=== PATIENT | male | born 1945 | race Caucasian/White ===

== ENCOUNTER 2022-01-19 08:31 | Outpatient (CLI) | payer MEDICARE ==
[2022-01-19] MEDS ORDERED: iohexol 350MG/ML 100ml bottle IV ONE (08:43)
== END 2022-01-19 23:59 | disposition home or self-care (01) ==
LOC: RAD 08:31
PROVIDERS: ATTEND Internal Medicine Cardiovascular Disease
DX: I71.2 Thoracic aortic aneurysm, without rupture (principal); I70.0 Atherosclerosis of aorta; I25.10 Atherosclerotic heart disease of native coronary artery without angina pectoris; I51.7 Cardiomegaly; N28.1 Cyst of kidney, acquired; K57.30 Diverticulosis of large intestine without perforation or abscess without bleeding; K76.89 Other specified diseases of liver; M47.815 Spondylosis without myelopathy or radiculopathy, thoracolumbar region; Z95.0 Presence of cardiac pacemaker
CPT/HCPCS: 71275; J3490; Q9967

== ENCOUNTER → 2022-06-07 | Day surgery (SDC) | payer MEDICARE ==
[~2022-06-07] VITALS: Ht 198.1 cm; Wt 81.5 kg
[~2022-06-07] MED LIST: ALLO100T PO; AMIO200T61 PO; DIGO250T2 PO; ERGO500093 PO; GLIP5TAB13 PO; MYCO250C PO; PIOG45TA65 PO; PRE5T PO; SIMV-42 PO; WARF3TAB56 PO; WARF6TAB49 PO; ZOLP10TA PO; [UNRECOGNIZED DRUG - CODE] PO; ceFAZolin inj. 2,000 MG in dextrose 5%-water 100 ML IV ONE; dexamethasone sod phosphate 4mg/ml inj. ONE; famotidine 20mg tablet PO ONE; fentaNYL/PF 50MCG/1 ML 2ML syringe IV PRN; fentaNYL/PF 50MCG/1 ML 2ML syringe ONE; hydrALAZINE 20mg/ml inj. IV PRN; labetalol 20mg/4ml (5mg/ml) syringe IV PRN; midazolam 1 mg/ML 2ml injection ONE; morphine 2 MG/ML inj. syringe IV PRN; morphine 4 MG/ML inj SYRINge IV PRN; ondansetron/PF 4mg/2ml inj IV PRN; ondansetron/PF 4mg/2ml inj ONE; ringers solution, lacted 1,000 ML IV SCH
[2022-06-07 12:30] VITALS: BP 136/78
[2022-06-07 13:46] LABS: EOSINOPHILS # (AUTO) 0.1 X10'3 (0-0.9); EOSINOPHILS % (AUTO) 1.9 % (0-6); LYMPHOCYTES % (AUTO) 19.1 % (21-51); MEAN CORPUSCULAR HEMOGLOBIN 30.4 PG (27.0-31.0); MEAN CORPUSCULAR HGB CONC 33.2 g/dL (33.0-36.5); MEAN CORPUSCULAR VOLUME 91.7 FL (78-98); MEAN PLATELET VOLUME 6.5 FL (7.4-10.4); MONOCYTES # (AUTO) 0.6 X10'3 (0-0.9); MONOCYTES % (AUTO) 11.2 % (2-12); NEUTROPHILS # (AUTO) 3.3 X10'3 (1.8-7.7); NEUTROPHILS % (AUTO) 66.8 % (42-75); PRE OP HEMATOCRIT 42.3 % (42.0-52.0); PRE OP PLATELET COUNT 176 X10'3 (140-440); RED BLOOD COUNT 4.62 X10'6 (4.70-6.10); RED CELL DISTRIBUTION WIDTH 13.9 % (11.5-14.5)
[2022-06-07 13:57] LABS: PRE OP PROTIME 31.8 SECONDS (9.0-12.0)
[2022-06-07 13:59] LABS: ALBUMIN 3.2 G/DL (3.4-5.0); ALKALINE PHOSPHATASE 69 IU/L (46-116); BLOOD UREA NITROGEN 19 MG/DL (7-18); BUN/CREATININE RATIO 15.3 (5.4-32.0); CALCIUM 8.2 MG/DL (8.5-10.1); CHLORIDE 107 MMOL/L (99-107); CREATININE 1.24 MG/DL (0.60-1.10); PRE OP ALT 37 U/L (30-65); PRE OP ANION GAP 13 (8-16); PRE OP AST 32 U/L (10-37); PRE OP BILIRUB, TOTAL 0.7 MG/DL (0.0-1.0); PRE OP GLUCOSE 116 MG/DL (70-104); PRE OP POTASSIUM 4.2 MMOL/L (3.4-5.1); PRE OP SODIUM 142 MMOL/L (135-145); TOTAL CARBON DIOXIDE 21.8 MMOL/L (24-32); TOTAL PROTEIN 6.3 G/DL (6.4-8.2); eGFR 57 ML/MIN
[2022-06-07 14:03] LABS: PRE OP INR 3.3 INR
[2022-06-07 18:28] VITALS: BP 151/87
--- NOTE | 2022-06-07 18:28 | NUR ---
RECEIVED PT FROM OPERATING ROOM IN STABLE CONDITION, ALERT AND ORIENTED, ABLE TO CONVERSE APPROPRIATELY, WOUND VAC ON LEFT UPPER ARM, MINIMAL DRAINAGE NOTED, VITAL SIGNS STABLE
[2022-06-07 18:40] VITALS: BP 154/85
[2022-06-07 18:50] VITALS: BP 153/82
[2022-06-07 19:00] VITALS: BP 146/78
[2022-06-07 19:08] VITALS: BP 148/80
--- NOTE | 2022-06-07 19:08 | NUR ---
I HAVE REVIEWED D/C INSTRUCTIONS WITH PATIENT AND HIS AND THEY HAVE VERBALIZED UNDERSTANDING OF INSTRUCTIONS. PATIENT D/C HOME WITH ALL BELONGINGS AND WOUND VAC SUPPLIES. PT TAKEN TO LOBBY VIA WHEELCHAIR WHERE HE WAS DRIVEN HOME BY HIS . IV D/AMISHA PRIOR TO DISCHARGE
== END | disposition home or self-care (01) ==
LOC: PAS 12:40
PROVIDERS: ATTEND Surgery
DX: C4A.62 Merkel cell carcinoma of left upper limb, including shoulder (principal); E11.9 Type 2 diabetes mellitus without complications; E78.5 Hyperlipidemia, unspecified; I10 Essential (primary) hypertension; I48.0 Paroxysmal atrial fibrillation; I71.9 Aortic aneurysm of unspecified site, without rupture; Z94.0 Kidney transplant status; Z95.0 Presence of cardiac pacemaker; Z79.01 Long term (current) use of anticoagulants; Z79.899 Other long term (current) drug therapy
CPT/HCPCS: 11606; 36415; 80053; 82948; 85025; 85610; 85730; 93005; J0690; J1100; J2250; J2405; J3010; J7030; J7060; J7120; Z7506; Z7512; 88305; A4618; A6550; A7000

== ENCOUNTER 2023-03-05 07:03 | Day surgery (SDC) | payer MEDICARE ==
[~2023-03-05] VITALS: Ht 195.6 cm; Wt 92.9 kg
[~2023-03-05 07:03] MED LIST changes: +AMI200T PO; -AMIO200T61 PO; -GLIP5TAB13 PO; +HYDR-3972 PO; -ceFAZolin inj. 2,000 MG in dextrose 5%-water 100 ML IV ONE; -dexamethasone sod phosphate 4mg/ml inj. ONE; -famotidine 20mg tablet PO ONE; -fentaNYL/PF 50MCG/1 ML 2ML syringe IV PRN; -fentaNYL/PF 50MCG/1 ML 2ML syringe ONE; -hydrALAZINE 20mg/ml inj. IV PRN; -labetalol 20mg/4ml (5mg/ml) syringe IV PRN; -midazolam 1 mg/ML 2ml injection ONE; -morphine 2 MG/ML inj. syringe IV PRN; -morphine 4 MG/ML inj SYRINge IV PRN; -ondansetron/PF 4mg/2ml inj IV PRN; -ondansetron/PF 4mg/2ml inj ONE; -ringers solution, lacted 1,000 ML IV SCH
[2023-03-05 07:30] VITALS: BP 117/62; PULSE 77; RESP 16; TEMP 97.8; O2SAT 95
[2023-03-05] MEDS ORDERED: AMOX1TAB15 PO (07:33)
[2023-03-05] MEDS ORDERED: KETO15CR2 TD (07:33)
[2023-03-05 08:12] LABS: INR 1.9 INR; PROTHROMBIN TIME 20.1 SECONDS (9.0-12.0)
--- NOTE | 2023-03-05 08:50 | NUR ---
Bedside US shows no fluid. Limited US only, procedure cancelled.
== END 2023-03-05 08:55 | disposition home or self-care (01) ==
LOC: SSTAY O 07:03
PROVIDERS: ATTEND Radiology Vascular & Interventional Radiology
DX: J90 Pleural effusion, not elsewhere classified (principal); Z53.8 Procedure and treatment not carried out for other reasons; M10.9 Gout, unspecified; E11.9 Type 2 diabetes mellitus without complications; E78.5 Hyperlipidemia, unspecified; Z94.0 Kidney transplant status; Z86.718 Personal history of other venous thrombosis and embolism; Z85.828 Personal history of other malignant neoplasm of skin; Z79.899 Other long term (current) drug therapy; Z79.01 Long term (current) use of anticoagulants
CPT/HCPCS: 36415; 76604; 85610; C1729

== ENCOUNTER 2023-03-12 07:52 | Day surgery (SDC) | payer MEDICARE ==
[2023-03-12] VITALS (8 sets, daily range): BP systolic 104–126; BP diastolic 59–70; PULSE 72–89; RESP 16; TEMP 98.2; O2SAT 92–93
[~2023-03-12] VITALS: Ht 195.6 cm; Wt 94.6 kg
[~2023-03-12 07:52] MED LIST changes: +AMOX1TAB15 PO; +KETO15CR2 TD; -WARF6TAB49 PO
[2023-03-12] MEDS ORDERED: cefazolin 2gm/D5W 100mL 100 ML IV ONE (08:16)
[2023-03-12] MEDS ORDERED: vancomycin 1,500 MG in NS 300ml IV soln IV ONE (08:16)
[2023-03-12] MEDS ORDERED: FURO20TA4 PO (08:29)
[2023-03-12] MEDS ORDERED: POTA8TAB69 PO (08:29)
[2023-03-12 08:50] LABS: BASOPHILS % (AUTO) 0.5 % (0-1); EOSINOPHILS # (AUTO) 0.1 X10'3 (0-0.9); EOSINOPHILS % (AUTO) 1.1 % (0-6); HEMATOCRIT 39.5 % (42.0-52.0); LYMPHOCYTES # (AUTO) 0.4 X10'3 (1.1-4.8); LYMPHOCYTES % (AUTO) 6.1 % (21-51); MEAN CORPUSCULAR HEMOGLOBIN 27.6 PG (27.0-31.0); MEAN CORPUSCULAR HGB CONC 32.8 g/dL (33.0-36.5); MEAN CORPUSCULAR VOLUME 84.1 FL (78-98); MEAN PLATELET VOLUME 7.2 FL (7.4-10.4); MONOCYTES # (AUTO) 0.5 X10'3 (0-0.9); MONOCYTES % (AUTO) 7.6 % (2-12); NEUTROPHILS # (AUTO) 5.3 X10'3 (1.8-7.7); NEUTROPHILS % (AUTO) 84.7 % (42-75); PLATELET COUNT 138 X10'3 (140-440); RED BLOOD COUNT 4.69 X10'6 (4.70-6.10); RED CELL DISTRIBUTION WIDTH 20.7 % (11.5-14.5); WHITE BLOOD COUNT 6.2 X10'3 (4.5-11.0)
[2023-03-12 09:10] LABS: INR 1.3 INR; PROTHROMBIN TIME 13.7 SECONDS (9.0-12.0)
[2023-03-12 09:13] LABS: ALBUMIN 2.4 G/DL (3.4-5.0); ANION GAP 10 (8-16); BLOOD UREA NITROGEN 23 MG/DL (7-18); BUN/CREATININE RATIO 20.4 (10.0-20.0); CALCIUM 8.1 MG/DL (8.5-10.1); CHLORIDE 105 MMOL/L (99-107); CREATININE 1.13 MG/DL (0.60-1.10); GLUCOSE 128 MG/DL (70-104); MAGNESIUM 1.9 MG/DL (1.5-2.4); POTASSIUM 3.9 MMOL/L (3.5-5.1); SODIUM 139 MMOL/L (135-145); eCRCL 70 ML/MIN; eGFR 63 ML/MIN
[2023-03-12] MEDS ORDERED: midazolam 1 mg/ML 2ml injection ONE ×4 (10:48→13:04)
[2023-03-12] MEDS ORDERED: fentaNYL/PF 50MCG/1 ML 2ML syringe ONE (10:48)
[2023-03-12] MEDS ORDERED: LIDOCAINE 2%/EPI 1:100,000 inj. Multi-dose 20 ML VIAL ONE (10:49)
[2023-03-12] MEDS ORDERED: vancomycin 1,000mg inj ONE (10:49)
[2023-03-12] MEDS ORDERED: iohexol 350 MG/ML 50ML vial IV ONE ×2 (10:49→10:52)
[2023-03-12 11:36] LABS: ANISOCYTOSIS 3+; ELLIPTOCYTES FEW; PLATELET ESTIMATE DECREASED
[2023-03-12] MEDS ORDERED: proCHLORperazine 10 MG/2 ml inj ONE (12:12)
[2023-03-12] MEDS ORDERED: normal saline 1000ml 1,000 ML IV SCH (14:25)
[2023-03-13] MEDS ORDERED: normal saline 1000ml 1,000 ML IV SCH (05:30)
== END 2023-03-12 15:45 | disposition home or self-care (01) ==
LOC: SSTAY O 07:52
PROVIDERS: ATTEND Internal Medicine Cardiovascular Disease
DX: Z45.02 Encounter for adjustment and management of automatic implantable cardiac defibrillator (principal); I44.2 Atrioventricular block, complete; I42.0 Dilated cardiomyopathy; I49.5 Sick sinus syndrome; I48.0 Paroxysmal atrial fibrillation; E78.5 Hyperlipidemia, unspecified; E11.9 Type 2 diabetes mellitus without complications; I71.9 Aortic aneurysm of unspecified site, without rupture; I47.1 Supraventricular tachycardia; I11.0 Hypertensive heart disease with heart failure; I50.22 Chronic systolic (congestive) heart failure; Z94.0 Kidney transplant status; Z86.73 Personal history of transient ischemic attack (TIA), and cerebral infarction without residual deficits; Z79.82 Long term (current) use of aspirin; Z79.84 Long term (current) use of oral hypoglycemic drugs; Z79.01 Long term (current) use of anticoagulants; Z79.899 Other long term (current) drug therapy; Z85.828 Personal history of other malignant neoplasm of skin; Z98.890 Other specified postprocedural states; Z80.1 Family history of malignant neoplasm of trachea, bronchus and lung; Z84.1 Family history of disorders of kidney and ureter
CPT/HCPCS: 33225; 33233; 33249; 36415; 71045; 80048; 83735; 85025; 85610; 93005; 93641; 99152; 99153; C1882; C1895; C1900; J0690; J0780; J2250; J3010; J3370; J7030; J7040; Q9967; 33240; 85008; A4620; C1769